=== PATIENT | male | born 1975 | race Caucasian/White ===

== ENCOUNTER 2022-02-15 12:45 | Emergency (ER) | payer MEDICAID ==
[~2022-02-15] VITALS: Ht 175.3 cm; Wt 113.6 kg
[2022-02-15 12:47] VITALS: BP 151/98
[2022-02-15] MEDS ORDERED: IBUP-2213 PO (13:08)
[2022-02-15] MEDS ORDERED: CEPH-588 PO (13:08)
--- NOTE | 2022-02-15 13:36 | NUR ---
46 y/o male bib self from home, pt presents to ed with c/o abscess on left forearm for 3 days. pt denies fevers, chills, sob, cp, cough, body aches. pt thinks he may have had an insect bite and scractched it. a&ox4, ambulates with steady gait. pmh: dm2 nka med: denies
[2022-02-15 13:41] VITALS: BP 151/98
--- NOTE | 2022-02-15 13:41 | NUR ---
Patient discharged with v/s stable. Written and verbal after care instructions given and explained. Patient alert, oriented and verbalized understanding of instructions. Ambulatory with steady gait. All questions addressed prior to discharge. ID band removed. Patient advised to follow up with PMD. Rx of cephalexin, ibuprofen (sent) given. Patient educated on indication of medication including possible reaction and side effects. Opportunity to ask questions provided and answered.
== END 2022-02-15 13:41 | disposition home or self-care (01) ==
LOC: MED 12:45
DX: L03.114 Cellulitis of left upper limb (principal); E11.9 Type 2 diabetes mellitus without complications; Z79.1 Long term (current) use of non-steroidal anti-inflammatories (NSAID); Z79.2 Long term (current) use of antibiotics
CPT/HCPCS: 99283

== ENCOUNTER 2023-04-06 13:49 | Emergency (ER) | payer SELFPAY ==
[~2023-04-06] VITALS: Ht 172.7 cm; Wt 109.9 kg
[~2023-04-06 13:49] MED LIST: CEPH-588 PO; IBUP-2213 PO
[2023-04-06 14:05] VITALS: BP 141/88; PULSE 79; RESP 19; TEMP 97.9; O2SAT 98
[2023-04-06] MEDS ORDERED: CEPH-588 PO (14:28)
[2023-04-06] MEDS ORDERED: BACI-418 TP (14:28)
== END 2023-04-06 14:55 | disposition home or self-care (01) ==
LOC: MED 13:49
DX: L03.031 Cellulitis of right toe (principal); E11.9 Type 2 diabetes mellitus without complications; Z79.1 Long term (current) use of non-steroidal anti-inflammatories (NSAID); Z79.2 Long term (current) use of antibiotics
CPT/HCPCS: 99283